=== PATIENT | male | born 1980 | race Caucasian/White ===

== ENCOUNTER → 2017-10-22 | Outpatient (CLI) | payer OTHER ==
[~2017-10-22] MED LIST: ACEASPCAF PO; ACET500; AMOX500 PO; CODGUAEL PO; CYCL10 PO; DIAZ5 PO; HYDACE5 PO; HYDACE5325 PO; IBUP800 PO; KETO10 PO; NAPR500; NAPR550 PO; OXYACE5T PO; PENVK500 PO; PROM25 PO; Percocet 5-3251 EACH PO; RXCEPH500 PO; RXCYCL10 PO; RXHYDACE PO; RXNAPNA550 PO; RXOXYACE PO; RXPROM25 PO; TAMS.4ER PO; TRAM50 PO; Vibramycin100 MG PO; [UNRECOGNIZED DRUG - REMARK]
[2017-10-22 13:54] LABS: BASOPHILS ABSOLUTE AUTO 0.02 K/mm3 (0.00-0.23); BASOPHILS PERCENT AUTO 0 % (0-2); EOSINOPHILS ABSOLUTE AUTO 0.03 K/mm3 (0.00-0.68); EOSINOPHILS PERCENT AUTO 1 % (0-6); Hematocrit 41.3 % (37.0-53.0); Hemoglobin 14.3 g/dL (13.5-17.5); IMMATURE GRAN ABSOLUTE AUTO 0.01 K/mm3 (0.00-0.10); IMMATURE GRAN PERCENT AUTO 0 % (0-1); LYMPHOCYTES ABSOLUTE AUTO 1.14 K/mm3 (0.84-5.20); LYMPHOCYTES PERCENT AUTO 23 % (21-46); MONOCYTES ABSOLUTE AUTO 0.35 K/mm3 (0.16-1.47); MONOCYTES PERCENT AUTO 7 % (4-13); Mean Corpuscular HGB 31.8 pg (26.0-34.0); Mean Corpuscular HGB Conc 34.6 g/dL (31.5-36.5); Mean Corpuscular Volume 92 fL (80-100); Mean Platelet Volume 10.2 fL (9.1-12.4); NEUTROPHILS ABSOLUTE AUTO 3.32 K/mm3 (1.96-9.15); NEUTROPHILS PERCENT AUTO 68 % (41-73); Platelet Count 212 K/mm3 (150-400); RDW Coefficient Variation 12.3 % (11.7-14.2); RDW Standard Deviation 40.6 fL (35.1-46.3); White Blood Cell Count 4.87 K/mm3 (4.00-11.30)
[2017-10-22 14:00] LABS: Anion Gap 8 mmol/L (6-16); Blood Urea Nitrogen 10 mg/dL (8-24); Bun/Creatinine Ratio 8.4 (12.0-20.0); CO2, Blood 29 mmol/L (21-32); Calcium, Blood 8.9 mg/dL (8.5-10.1); Chloride, Blood 106 mmol/L (98-108); Creatinine, Blood 1.19 mg/dL (0.60-1.20); Glomerular Filtration Rate >60 (60-); Glucose, Blood 96 mg/dL (70-99); Potassium, Blood 3.7 mmol/L (3.5-5.5); Sodium, Blood 143 mmol/L (136-145)
== END | disposition home or self-care (01) ==
LOC: LAB SHORT 13:51 → LAB EV 13:51
PROVIDERS: Family Medicine
DX: R31.9 Hematuria, unspecified (principal)
CPT/HCPCS: 80048; 85025

== ENCOUNTER 2018-05-26 16:27 | Emergency (ER) | payer OTHER ==
[~2018-05-26] VITALS: Ht 180.3 cm; Wt 79.4 kg
== END 2018-05-26 18:34 | disposition home or self-care (01) ==
LOC: ER 16:27
DX: M54.5 Low back pain (principal); Z87.891 Personal history of nicotine dependence
CPT/HCPCS: 96372; 99282-25; A9270-GY; J1885

== ENCOUNTER → 2023-02-05 | Outpatient (CLI) | payer OTHER | END | disposition home or self-care (01) | LOC: LAB 15:42 → LAB SHORT 15:42 | DX: J02.9 Acute pharyngitis, unspecified (principal) | CPT/HCPCS: 87081 ==